=== PATIENT | female | born 1990 | race Caucasian/White ===

== ENCOUNTER → 2017-06-02 | Outpatient (CLI) | payer OTHER ==
[~2017-06-02] MED LIST: TRICTAB PO
== END ==
LOC: HPND 10:19
PROVIDERS: ATTEND Family Medicine
DX: Z34.90 Encounter for supervision of normal pregnancy, unspecified, unspecified trimester (principal)
CPT/HCPCS: 76801

== ENCOUNTER → 2017-07-28 | Outpatient (CLI) | payer OTHER | LOC: HPND 10:29 | PROVIDERS: ATTEND Family Medicine | DX: Z36.3 Encounter for antenatal screening for malformations (principal) | CPT/HCPCS: 76805 ==

== ENCOUNTER 2017-12-25 04:08 | Inpatient (IN) ==
[2017-12-25] MEDS ORDERED: fentaNYL 2MCG-Bupiv 0.125% Epi 150 ML EPIDURAL ONE (04:40)
[2017-12-25 04:42] LABS: Baso % (Auto) 0.3 % (0.0-2.0); Eos # (Auto) 0.1 th/mm3 (0.0-0.4); Eos % (Auto) 0.4 % (0.0-4.0); Hematocrit 41.5 % (35.0-46.0); Hemoglobin 14.1 gm/dL (11.6-15.3); Lymph # (Auto) 1.6 th/mm3 (1.0-4.8); Lymph % (Auto) 11.5 % (9.0-44.0); Mean Corpuscular Hemoglobin 32.3 pg (27.0-34.0); Mean Platelet Volume 9.8 fL (7.0-11.0); Mono % (Auto) 7.3 % (0.0-8.0); Neut # (Auto) 11.3 th/mm3 (1.8-7.7); Neut % (Auto) 80.5 % (16.0-70.0); Platelet Count 133 th/mm3 (150-450); Red Blood Count 4.37 mil/mm3 (4.00-5.30); Red Cell Distribution Width 13.7 % (11.6-17.2)
[2017-12-25] MEDS ORDERED: Oxytocin 30 Units/500ml Premix 30 UNITS/500 ML BAG IV.SIG ONE (05:10)
[2017-12-25] MEDS ORDERED: Sod Chloride 0.9% Inj 1,000 ML IV.CONT PRN (05:10)
[2017-12-25] MEDS ORDERED: Naloxone Inj 0.4 MG/ML Vial IV.PUSH PRN ×2 (05:10→10:09)
[2017-12-25] MEDS ORDERED: Sodium Chlor 0.9% Inj 500 ML IV.SIG PRN (05:10)
[2017-12-25] MEDS ORDERED: fentaNYL Citrate Inj 100 MCG/2 ML Ampul IV.PUSH PRN ×2 (05:10)
[2017-12-25] MEDS ORDERED: Citric Acid/Sodium Citrate Liq 30 ML UDC PO SCH (05:15)
--- NOTE | 2017-12-25 05:50 | P.HPOB ---
History of Present Illness Primary Care Physician: Dami Cortés MD Chief Complaint: painful contractions History of Present Illness: 27 y/o at 40 weeks gestation (last US in July of this year) with no significant PMH that began to have painful, frequent contractions 4 hours ago. She has been receiving care with Dr. Barton at the [facility]. She reports no complications with this . Endorses good movement. She denies leakage of fluid. States she lost mucus plug yesterday evening, started having faint pink discharge with wiping at time of painful contractions. No dysuria, shortness of breath, or fevers. Reports that she is GBS negative. All labs per documentation have been negative or within normal limits. No headaches, dizziness, abdominal pain, or LE. Only medication is vitamins. Previous delivery was at 40/2 weeks, . No complications. Weeks Gestation:: 40 Para: 1 : 2 - Inpatient Certification I certify that the inpatient services were ordered in accordance with Medicare regulations governing the order. This includes certification that hospital inpatient services are reasonable and necessary and in the case of services not specified as inpatient-only under 42 CFR 419.22(n), that they are appropriately provided as inpatient services in accordance to with the 2-midnight benchmark under 43 CFR 412.3(e) Estimated Total Length of Stay (Days): 2 Plans for Post Hospital Care: Home Review of Systems All other systems reviewed negative except as stated [facility] - History History Provided By: Patient - Medical / Surgical Hx Neg / Unobtainable Medical Problems Denied: Yes Surgical History: No Previous Surgery - Tobacco History Second Hand Smoke Exposure: No Tobacco Use In Past 30 Days: No Smoking Status: Never smoker - Alcohol History How Often Do You Have a Drink Containing Alcohol: Never - Substance Use History Substance History: No History of Abuse Medications and Allergies Active Medications: Active Medications Citric Acid/Sodium Citrate (Sodium Citrate/Citric Acid Liq) 30 ml PO [facility] Stop: 12/29/17 05:14 Fentanyl Citrate (Fentanyl Inj) 50 mcg IV.PUSH Q1H PRN PRN Reason: Pain Scale 3 - 5 Fentanyl Citrate (Fentanyl Inj) 100 mcg IV.PUSH Q1H PRN PRN Reason: PAIN SCALE 6 TO 10 Lactated Ringer's (Lr 1000 Ml Inj) 1,000 mls @ 125 mls/hr IV.CONT .Q8H PATRICIA Lactated Ringer's (Lr 1000 Ml Inj) 1,000 mls @ 3,000 mls/hr IV.SIG UNSCH PRN PRN Reason: compromise or epidural Sodium Chloride (Ns Inj) 1,000 mls @ 100 mls/hr IV.CONT .Q10H PRN PRN Reason: SEE LABEL COMMENTS Oxytocin (Pitocin 30 Units/Ns 500 Ml Premix) 30 units in 500 mls @ 999 mls/hr IV.SIG BOLUS ONE Stop: 12/25/17 05:40 Sodium Chloride (Ns Inj) 500 mls @ 1,000 mls/hr IV.SIG UNSCH PRN PRN Reason: SEE LABEL COMMENTS Lidocaine HCl (Xylocaine 1% Inj) 0.1 ml I-DERMAL PRN PRN PRN Reason: For IV start Stop: 12/28/17 05:09 Lidocaine HCl (Xylocaine 1% Inj) 10 ml INFILTRATN PRN PRN PRN Reason: For episiotomy repair Stop: 12/27/17 05:09 Mineral Oil (Muri-Lube Oil) 10 ml TOPICAL PRN PRN PRN Reason: PRN perineal massage Naloxone HCl (Narcan Inj) 0.1 mg IV.PUSH Q2M PRN PRN Reason: for opiate reversal Allergies Allergy/AdvReac Type Severity Reaction Status Date / Time No Known Allergies Allergy Unverified 11/07/17 14:15 Exam Vital signs: Vital Signs 12/25/17 04:17 12/25/17 04:39 12/25/17 05:00 Pulse Rate 83 81 Respiratory Rate 16 Blood Pressure 117/75 121/71 12/25/17 05:07 12/25/17 05:10 12/25/17 05:15 Pulse Rate 93 H 97 H 100 H Respiratory Rate 18 Blood Pressure 118/71 124/64 116/57 L Intake & Output 12/24/17 12/24/17 12/25/17 06:59 18:59 06:59 Weight 78.018 kg Narrative: GENERAL: Well-nourished, well-developed patient. SKIN: Warm and dry. HEAD: Normocephalic and atraumatic. EYES: No scleral icterus. No injection or drainage. ENT: No nasal drainage noted. Mucous membranes pink. Airway patent. NECK: Supple, trachea midline. No JVD. CARDIOVASCULAR: Regular rate and rhythm without murmurs, gallops, or rubs. RESPIRATORY: Breath sounds equal bilaterally. No accessory muscle use. ABDOMEN/GI: Abdomen soft, non-tender, bowel sounds present, no rebound, no guarding Gravid to 40 weeks size GENITOURINARY: External Genitalia: intact and normal in appearance Cervix: posterior Dilatation: 8 Effacement: 90 Station: -1 Presentation: vertex Membranes: bulging Uterine Contractions: q2-3 min FHT's: Category: 1 Baseline: 160 Reactive: yes Variability: mod Decels: occasional variable EXTREMITIES: No cyanosis or edema. BACK: Nontender without obvious deformity. No CVA tenderness. NEUROLOGICAL: Awake and alert. Moves all extremities without difficulty. Normal speech. Results - Labs CBC & Chem 7: 12/25/17 04:31 Labs: Laboratory Results - last 24 hr 12/25/17 04:31 WBC 14.0 H RBC 4.37 Hgb 14.1 Hct 41.5 MCV 95.0 MCH 32.3 MCHC 34.0 RDW 13.7 Plt Count 133 L MPV 9.8 Neut % (Auto) 80.5 H Lymph % (Auto) 11.5 [place] % (Auto) 7.3 Eos % (Auto) 0.4 Baso % (Auto) 0.3 Neut # (Auto) 11.3 H Lymph # (Auto) 1.6 Monroe # (Auto) 1.0 H Eos # (Auto) 0.1 Baso # (Auto) 0.0 WBC Differential . Differential Comment Auto diff final Caprini VTE Risk Assessment Caprini VTE Risk Assessment: No/Low Risk (score <= 1) Caprini Risk Assessment Model: Point Value = 1 Point Value = 2 Point Value = 3 Point Value = 5 Age 41-60 Minor surgery BMI > 25 kg/m2 Swollen legs Varicose veins or History of unexplained or recurrent spontaneous Oral contraceptives or hormone replacement Sepsis (< 1 month) Serious lung disease, including pneumonia (< 1 month) Abnormal pulmonary function Acute myocardial infarction Congestive heart failure (< 1 month) History of inflammatory bowel disease Medical patient at bed rest Age 61-74 Arthroscopic surgery Major open surgery (> 45 min) Laparoscopic surgery (> 45 min) Malignancy Confined to bed (> 72 hours) Immobilizing plaster cast Central venous access Age >= 75 History of VTE Family history of VTE Factor V Leiden Prothrombin [id number] Lupus anticoagulant Anticardiolipin antibodies Elevated serum homocysteine Heparin-induced thrombocytopenia Other congenital or acquired thrombophilia Stroke (< 1 month) Elective arthroplasty Hip, pelvis, or leg fracture Acute spinal cord injury (< 1 month) Prophylaxis Regimen: Total Risk Factor Score Risk Level Prophylaxis Regimen 0-1 Low Early ambulation 2 Moderate Order ONE of the following: *Sequential Compression Device (SCD) *Heparin 5000 units SQ BID 3-4 Higher Order ONE of the following medications: *Heparin 5000 units SQ TID *Enoxaparin/Lovenox 40 mg SQ daily (WT < 150 kg, CrCl > 30 mL/min) *Enoxaparin/Lovenox 30 mg SQ daily (WT < 150 kg, CrCl > 10-29 mL/min) *Enoxaparin/Lovenox 30 mg SQ BID (WT < 150 kg, CrCl > 30 mL/min) AND/OR *Sequential Compression Device (SCD) 5 or more Highest Order ONE of the following medications: *Heparin 5000 units SQ TID (Preferred with Epidurals) *Enoxaparin/Lovenox 40 mg SQ daily (WT < 150 kg, CrCl > 30 mL/min) *Enoxaparin/Lovenox 30 mg SQ daily (WT < 150 kg, CrCl > 10-29 mL/min) *Enoxaparin/Lovenox 30 mg SQ BID (WT < 150 kg, CrCl > 30 mL/min) AND *Sequential Compression Device (SCD) Assessment and Plan - Diagnosis (1) Post-term , 40-42 weeks of gestation Code(s): O48.0 - Post-term Status: Acute (2) Active labor Status: Acute - Plan 27 y/o F @ 40 weeks presenting in active labor. /-1. FHT Cat 2 due to recurrent variable decels. Contractin q2-4 minutes. GBS negative. labs negative for abnormalities. Plan to monitor frequently w/check q2 hours or as needed. Patient desires epidural, plan administer. Domingo well, no Pit at this time. NPO. Patient understands and agrees. All questions were answered. Plan discussed w/Dr. Andrew
[2017-12-25 06:15] LABS: Bacteria,Urine Rare /hpf; Bilirubin,Urine Negative (Negative); Clarity,Urine Cloudy (Clear); Color,Urine Yellow (Yellw/Straw); Glucose,Urine (UA) Negative (Negative); Leukocyte Esterase,Urine Negative (Negative); Mucus,Urine Moderate /lpf (Occasional); Nitrite,Urine Negative (Negative); Specific Gravity,Urine 1.024 (1.002-1.035); Squamous Epithelial Cell,Urine 7 /hpf (0-5)
[2017-12-25 06:19] LABS: Amphetamine Urine With Conf Neg (Neg); Benzodiazepine Urine With Conf Neg (Neg)
--- NOTE | 2017-12-25 07:11 | P.OBLABOR ---
Subjective Interval history: Patient doing well. Epidural in place. Minimal pain. Denies any gush of fluids, some vaginal bleeding. Objective Vital Signs: Vital Signs - 8 hr 12/25/17 04:17 12/25/17 04:39 12/25/17 05:00 Pulse Rate 83 81 Respiratory Rate 16 Blood Pressure 117/75 121/71 12/25/17 05:07 12/25/17 05:10 12/25/17 05:15 Pulse Rate 93 H 97 H 100 H Respiratory Rate 18 Blood Pressure 118/71 124/64 116/57 L 12/25/17 05:25 12/25/17 05:30 12/25/17 05:46 Pulse Rate 109 H 81 89 Respiratory Rate Blood Pressure 74/38 L 121/63 83/49 L 12/25/17 05:55 12/25/17 06:01 12/25/17 06:15 Pulse Rate 80 82 91 H Respiratory Rate Blood Pressure 109/57 L 103/47 L 106/59 L 12/25/17 06:30 12/25/17 06:45 Pulse Rate 81 83 Respiratory Rate 18 Blood Pressure 102/43 L 96/50 L Objective: Pelvic Exam: Cervix: soft Dilatation: 9 Effacement: 90 Station: -1 Presentation: vertex Membranes: AROM at 0700 Uterine Contractions: q3-4 mins FHT's: Category: 1 Baseline: 150 Reactive: yes Variability: moderate Decels: none Weeks Gestation: 40 Patient Started Active Labor: Yes Medical Induction of Labor: No Artificial Rupture of Membrane: Yes Artificial ROM Date: 12/25/17 Artificial ROM Time: 07:05 Assessment and Plan - Diagnosis (1) Post-term , 40-42 weeks of gestation Code(s): O48.0 - Post-term Status: Acute (2) Active labor Status: Acute - Plan 27 y/o F @ 40 weeks presenting in active labor. Category I FHT Cervical exam /-1 AROM performed, clear fluid GBS negative -Continue to monitor -Continuous FHT -Anticipate vaginal delivery
[2017-12-25] MEDS ORDERED: fentaNYL Citrate Inj 100 MCG/2 ML Ampul EPIDURAL ONE (07:23)
[2017-12-25] MEDS ORDERED: fentaNYL 2MCG-Bupiv 0.125% Epi 150 ML EPIDURAL PRN (07:23)
[2017-12-25] MEDS ORDERED: Witch Hazel 50%/Glyderin 12.5% 40 Pad Jar RECTAL PRN (10:09)
[2017-12-25] MEDS ORDERED: Benzocaine 20% Top Spray 60 ML Can TOPICAL PRN (10:09)
[2017-12-25] MEDS ORDERED: Bisacodyl 10 MG Supp RECTAL PRN (10:09)
--- NOTE | 2017-12-25 10:13 | P.OBDELI ---
Weeks Gestation: 40 Patient Started Active Labor: Yes Medical Induction of Labor: No Artificial Rupture of Membrane: Yes Anesthesia: Epidural Episiotomy: none Vaginal Delivery: Normal Presentation: Occiput anterior Nuchal Cord: None Delayed Cord Clamping (45 sec): Yes Placenta: Spontaneous delivery, Intact Laceration: 1 deg (bony-urethral), 2 deg (perineal) Repair: Chromic interrupted Estimated blood loss (mL): 100 Infant: Female
[2017-12-25] MEDS ORDERED: Oxytocin 30 Units/500ml Premix 30 UNITS/500 ML BAG IV.CONT SCH (10:15)
[2017-12-25] MEDS ORDERED: Diphtheria/Tetanus/Pertussis Vaccine Inj 0.5 ML Syringe IM ONE (16:00)
[2017-12-25] MEDS ORDERED: Measles/Mumps/Rubella Vaccine Inj 0.5 ML Vial SQ ONE (16:00)
[2017-12-25 20:26] VITALS: TEMP 98.1
[2017-12-25] MEDS: Senna/Docusate Sodium 8.6/50 MG Tablet PO SCH (20:47)
[2017-12-25] MEDS: Acetaminophen 325 MG Tablet PO PRN (20:47)
[2017-12-25] MEDS ORDERED: Zolpidem Tartrate 5 MG Tablet PO PRN (21:00)
[2017-12-26] MEDS: Acetaminophen 325 MG Tablet PO PRN ×2 (01:15→12:39)
--- NOTE | 2017-12-26 08:24 | P.PNOB ---
Subjective Post day: 1 Interval history: day #1. AFVSS overnight. Pain minimal. Decreased lochia. Denies dysuria. No breast tenderness. She is feeding the baby via breast. Appetite good. No nausea or vomiting. Endorses flatus. No bowel movement. Ambulating well. Denies calf pain, shortness of breath, or cough. Otherwise, she is doing well this morning and has no other complaints. Objective Vital Signs/I&O: Vital Signs 12/25/17 08:30 12/25/17 08:50 12/25/17 08:55 Temperature Pulse Rate 83 103 H 82 Respiratory Rate Blood Pressure 98/52 L 111/75 12/25/17 09:05 12/25/17 09:35 12/25/17 10:00 Temperature 98.2 F Pulse Rate 78 79 115 H Respiratory Rate 18 Blood Pressure 114/64 96/60 L 12/25/17 10:32 12/25/17 11:01 12/25/17 11:30 Temperature Pulse Rate 77 101 H 90 Respiratory Rate 17 18 Blood Pressure 106/56 L 98/86 L 102/62 12/25/17 19:55 12/26/17 02:15 Temperature 98.1 F Pulse Rate 96 H Respiratory Rate 18 0 L Blood Pressure 103/57 L Result Diagrams: 12/25/17 04:31 Objective Remarks: GENERAL: Well-nourished, well-developed patient. CARDIOVASCULAR: Regular rate and rhythm without murmurs, gallops, or rubs. RESPIRATORY: Breath sounds equal bilaterally. No accessory muscle use. ABDOMEN/GI: Abdomen soft, non-tender. Fundus: Firm, non-tender at umbilicus. GENITOURINARY: Light to moderate bleeding. EXTREMITIES: No cyanosis or edema, non-tender, without signs of DVT. Medications and IVs: Active Medications Acetaminophen (Tylenol) 650 mg PO Q4H PRN PRN Reason: PAIN SCALE 1 TO 2 Last Admin: 12/26/17 01:15 Dose: 650 mg Al Hydroxide/Mg Hydroxide (Milk Of Magnesia Liq) 30 ml PO Q12H PRN PRN Reason: Mild Constipation Benzocaine (Americaine 20% [place]) 1 spray TOPICAL Q4H PRN PRN Reason: For Perineum Discomfort Last Admin: 12/25/17 21:54 Dose: 1 spray Bisacodyl (Dulcolax Supp) 10 mg RECTAL DAILY PRN PRN Reason: SEVERE CONSITIPATION Citric Acid/Sodium Citrate (Sodium Citrate/Citric Acid Liq) 30 ml PO [facility] Stop: 12/29/17 05:14 Sodium Chloride (Ns Inj) 1,000 mls @ 100 mls/hr IV.CONT .Q10H PRN PRN Reason: SEE LABEL COMMENTS Sodium Chloride (Ns Inj) 500 mls @ 1,000 mls/hr IV.SIG UNSCH PRN PRN Reason: SEE LABEL COMMENTS Ibuprofen (Motrin) 800 mg PO Q8H PRN PRN Reason: For cramping Last Admin: 12/25/17 20:47 Dose: 800 mg Lactulose (Lactulose Liq) 30 ml PO DAILY PRN PRN Reason: SEVERE CONSITIPATION Naloxone HCl (Narcan Inj) 0.1 mg IV.PUSH Q2M PRN PRN Reason: for opiate reversal Ondansetron HCl (Zofran Odt) 4 mg PO Q6H PRN PRN Reason: NAUSEA OR VOMITING Senna/Docusate Sodium (Tonya-Colace) 1 tab PO BID [facility] Last Admin: 12/25/17 20:47 Dose: 1 tab Sennosides (Senokot) 17.2 mg PO Q12H PRN PRN Reason: Moderate Constipation Sodium Chloride (Ns Flush) 2 ml IV.FLUSH BID [facility] Last Admin: 12/25/17 22:03 Dose: Not Given Sodium Chloride (Ns Flush) 2 ml IV.FLUSH PRN PRN PRN Reason: FLUSH AFTER USING IV ACCESS Witch Sabina/Glycerin (Tucks Pads) 1 applicatio RECTAL QID PRN PRN Reason: HEMORRHOIDS Last Admin: 12/25/17 21:53 Dose: 1 applicatio Zolpidem Tartrate (Ambien) 5 mg PO HS PRN PRN Reason: SLEEP Assessment and Plan - Diagnosis (1) Post-term , 40-42 weeks of gestation Code(s): O48.0 - Post-term Status: Acute - Plan 27y/o who is PPD#1 s/p . -Continue routine care. -Motrin PRN pain. -Encouraged OOB. Advised pelvic rest for 6 wks. -Will need a f/u appt. within 6 wks. -Re: ctrl, she is undecided. -D/c today/tomorrow. trish OB attending
[2017-12-26 09:01] VITALS: BP 104/64; PULSE 70; RESP 16
[2017-12-26] MEDS: Senna/Docusate Sodium 8.6/50 MG Tablet PO SCH (09:06)
== END 2017-12-26 19:10 | disposition home or self-care (01) ==
LOC: HOBED 04:08 → H2E 04:35 → H1EA 12:25
PROVIDERS: ADMIT Obstetrics & Gynecology; ATTEND Obstetrics & Gynecology